=== PATIENT | female | born 1970 | race Caucasian/White ===

== ENCOUNTER 2022-02-14 14:24 | Outpatient (REF) | payer OTHER, SELFPAY ==
[2022-02-14 16:06] LABS: MANUAL DIFF FLAG NO
[2022-02-14 16:14] LABS: Basophils Percent Auto 0.4 % (0-2); Eosinophils Absolute Auto 0.1 X10*3/uL (0.0-0.4); Eosinophils Percent Auto 0.8 % (0-4); Hematocrit 39.6 % (37.0-47.0); Hemoglobin 12.8 g/dl (12.0-16.0); Imm Gran Abs Auto 0.03 X10*3/uL (0.00-0.03); Imm Gran Pct Auto 0.3 % (0.0-0.4); Lymphocytes Absolute Auto 1.8 X10*3/uL (1.2-4.9); Lymphocytes Percent Auto 16.5 % (20-40); Mean Corpuscular HGB Conc 32.3 g/dl (31.0-35.0); Mean Corpuscular Hemoglobin 28.1 pg (27.0-33.0); Mean Corpuscular Volume 86.8 fL (80.0-98.0); Mean Platelet Volume 10.8 fL (9.4-12.3); Monocytes Absolute Auto 0.9 X10*3/uL (0.1-1.2); Monocytes Percent Auto 8.3 % (2-11); Neutrophils Absolute Auto 7.8 x10*3/uL (2.0-8.3); Neutrophils Percent Auto 73.7 % (45-73); Platelet Count 279 X10*3/uL (160-400); Red Blood Count 4.56 X10*6/uL (4.20-5.50); Red Cell Distribution Width 14.2 % (11.0-16.0); White Blood Count 10.6 X10*3/uL (4.8-10.8)
[2022-02-14 16:33] LABS: Lactate Dehydrogenase 165 U/L (122-220)
[2022-02-14 17:14] LABS: Erythrocyte Sedimentation Rate 12 MM/HR (0-20)
[2022-02-16 12:46] LABS: Myeloperoxidase Antibody <1.0 AI; Proteinase 3 PR3 Antibodies <1.0 AI
[2022-02-16 21:25] LABS: Anti Nuclear Antibody Screen POSITIVE (NEGATIVE); Anti Nuclear Antibody Titer 1:40 titer
[2022-02-17 11:26] LABS: Cyclic Citrullinated Peptide <16 UNITS
[2022-02-21 06:07] LABS: Angiotensin Converting Enzyme 21.3 U/L (9-67)
[2022-02-23 09:12] LABS: Asperg fumigatus Precip Abs NEGATIVE (NEGATIVE); Micropoly faeni Abs NEGATIVE (NEGATIVE); Pigeon serum Abs NEGATIVE (NEGATIVE); Saccharo pora viridis Abs NEGATIVE (NEGATIVE); Thermo candidus Abs NEGATIVE (NEGATIVE); Thermoa vulgaris #1 NEGATIVE (NEGATIVE)
== END 2022-02-14 14:25 | disposition home or self-care (01) ==
LOC: HO.LAB 14:24
PROVIDERS: PCP Physician Assistant Medical; Visit Provider Hospitalist
DX: R91.8 Other nonspecific abnormal finding of lung field (principal); R59.1 Generalized enlarged lymph nodes
CPT/HCPCS: 36415; 82164; 83615; 85025; 85652; 86021; 86038; 86039; 86200; 86331; 86606; 86609

== ENCOUNTER 2022-02-15 10:01 | Outpatient (REF) | payer OTHER, SELFPAY ==
--- NOTE | 2022-02-15 | PFT_ITS ---
FLOWS: FEV1 116% of predicted at 3.08 L. FVC 121% of predicted at 4.01 L. FEV1 to FVC ratio of 0.77. No bronchodilator response. LUNG VOLUMES: Total lung capacity 110% of predicted at 5.25 L. Residual volume 112% of predicted at 1.87 L. Diffusion capacity is normal. IMPRESSION: No obstructive or restrictive ventilatory defect. No bronchodilator response. Normal pulmonary function test. MD BENJI Cummins/LUBNA / [id number]
== END 2022-02-15 10:02 | disposition home or self-care (01) ==
LOC: HO.RESP 10:01
PROVIDERS: PCP Physician Assistant Medical; Visit Provider Hospitalist
DX: R05.9 Cough, unspecified (principal); R06.00 Dyspnea, unspecified
CPT/HCPCS: 94060; 94727; 94729

== ENCOUNTER 2022-02-21 12:20 | Day surgery (SDC) | payer OTHER, SELFPAY ==
--- NOTE | 2022-02-20 09:50 | HO.ANESPROP2 ---
Documented by User: Trisha Jung NP 02/20/22 13:52 HPI - Anesthesia Eval Consult details Narrative: 51yo F for Endoscopic Bronchial Ultrasound OR schedule states Can only use propofol ?? PMFSH Active Problems Active Problems: All Active Problems (Updated 02/14/22 @ 15:42 by Efrain Thomas MD) Pulmonary nodules (Acute) Lymphadenopathy (Acute) Past Medical History Medical History Allergic rhinitis Anxiety Family history of malignant hyperthermia Graves disease Hyperthyroidism Interstitial cystitis Lymphadenopathy Pulmonary nodules Vertigo Family History Family history of problems with anesthesia: Yes (son has MH) Surgical History Surgical History H/O ovarian cystectomy Hx of appendectomy Social History Social History Patient Tobacco Use Status: Never used Tobacco Are you DNR?: No Advance Directives: No Advance Directives Information Provided: Yes Meds Allergies Allergy/AdvReac Type Severity Reaction Status Date / Time Sulfa (Sulfonamide Allergy Severe Hives Verified 02/14/22 14:56 Antibiotics) Home Medications Medication Instructions Recorded Confirmed Last Taken Type clonazepam 0.5 mg tablet 0.5 mg PO DAILY PRN 02/14/22 Unknown History methimazole 5 mg tablet 5 mg PO DAILY 02/14/22 Unknown History Exam Exam Date and Time: February 20, 2022 0950 Pertinent Lab Results Pertinent Lab Results: Laboratory Tests 02/14/22 16:00 WBC 10.6 Hgb 12.8 Hct 39.6 Plt Count 279 Narrative Narrative: PFT 02/2022 LUNG VOLUMES:? Total lung capacity 110% of predicted at 5.25 L. ? Residual volume 112% of predicted at 1.87 L. ? Diffusion capacity is normal. ?? IMPRESSION:? No obstructive or restrictive ventilatory defect.? No bronchodilator response. Normal pulmonary function test. Assessment and Plan Assessment Anesthesia Assessment: Chart Reviewed Final Anesthetic Review Family History of Problems with Anesthesia: Yes (son has MH) Documented by User: Froylan Mcpherson MD 02/21/22 15:25 HPI - Anesthesia Eval Consult details Narrative: 51yo F for Endoscopic Bronchial Ultrasound Son has a history of MH with GA. Patient has previously had ovarian cyst removal under unknown anesthesia; has not had formal MH testing. PMFSH Past Medical History Medical History Allergic rhinitis Anxiety Family history of malignant hyperthermia Graves disease Hyperthyroidism Interstitial cystitis Lymphadenopathy Pulmonary nodules Vertigo Surgical History Surgical History H/O ovarian cystectomy Hx of appendectomy History of Problems with Anesthesia: No Social History Social History Patient Tobacco Use Status: Never used Tobacco Are you DNR?: No Advance Directives: No Advance Directives Information Provided: Yes Meds Allergies Allergy/AdvReac Type Severity Reaction Status Date / Time Sulfa (Sulfonamide Allergy Severe Hives Verified 02/14/22 14:56 Antibiotics) Home Medications Medication Instructions Recorded Confirmed Last Taken Type clonazepam 0.5 mg tablet 0.5 mg PO DAILY PRN 02/14/22 Unknown History methimazole 5 mg tablet 5 mg PO DAILY 02/14/22 Unknown History Exam Airway Mallampati Class: II TM Dist: >3cm Neck ROM: Full Loose/Missing/Broken Teeth: No Assessment and Plan Assessment Anesthesia Assessment: Anesthesia Plan Discussed Final Anesthetic Review History of Problems with Anesthesia: No NPO: Yes ASA Class: II Final Preanesthetic Review: No Changes in Pt Med Stat, Meds/Allgs Chart Reviewed, Consent Obtained/Reviewed and Anes Risks/Benef Reviewed Patient Risk: Low Procedure Risk: Low Anesthetic Plan Anesthetic Plan: GA (TIVA, clean technique) Disposition: Standard PACU
[2022-02-21] VITALS (10 sets, daily range): BP systolic 104–126; BP diastolic 50–70; PULSE 72–89; RESP 16–18; TEMP 36.1–36.4; O2SAT 96–100; BMI 32.9
--- NOTE | 2022-02-21 12:42 | MHC.SHP ---
Pre-Procedural Eval Section A Date of Service: 02/21/22 Changes since office visit: Yes Cold of Flu in the past 2 weeks; No New Medical Problems, No Changes in Medication and No Patient answered all questions The History & Physical has been completed within 30 days and I have reviewed it.: Yes Section B Chief Complaint: Enlarged lymph nodes, unspecified Allergies: Allergies Allergy/AdvReac Type Severity Reaction Status Date / Time Sulfa (Sulfonamide Allergy Severe Hives Verified 02/14/22 14:56 Antibiotics) Plan I have reviewed the history and physical and performed a pertinent physical examination on my patient. No changes have occurred unless specified.
[2022-02-21 12:58] LABS: UPreg QC Valid YES; Urine Pregnancy NEGATIVE (NEGATIVE)
[2022-02-21] MEDS: Throat Lozenge, Medicated LOZENGE 1 LOZENGE MUCOUS MEM (15:32)
[2022-02-21] MEDS: Acetaminophen 325 MG TABLET 650 MG PO (15:57)
[2022-02-21] MEDS: ondansetron HCL 4 MG/2 ML VIAL IVPUSH (15:59)
--- NOTE | 2022-02-22 08:21 | P.BOP_ITS ---
Brief Operative Note Date of Service: 02/22/22 Pre-op diagnosis: Lymphadenopathy Post-op diagnosis: same Procedure: Endobronchial ultrasound bronchoscopy with transbronchial needle aspirations and bronchoscopy with washings Implants: Surgeon: Efrain Thomas MD Anesthesia: GLMA Was an Gluer And Wedger used for this Procedure?: No Estimated blood loss (mL): 0 Pathology: none sent Condition: stable Disposition: same day
--- NOTE | 2022-02-22 09:57 | OP_ITS ---
SURGEON: Efrain Thomas MD PREOPERATIVE DIAGNOSIS: Lymphadenopathy. POSTOPERATIVE DIAGNOSIS: Lymphadenopathy and bronchitis. PROCEDURE PERFORMED: Bronchoscopy. ESTIMATED BLOOD LOSS: COMPLICATIONS: ANESTHESIA: LMA. The patient does have a history of malignant hyperthermia in the family, so therefore, all precautions were taken. ASSISTANTS: SPECIMENS: ASA CLASSIFICATION: 2. DESCRIPTION OF PROCEDURE: After the patient is adequately sedated with LMA, the flexible digital bronchoscope with endobronchial ultrasound bronchoscopy was introduced into the LMA. The EBUS was then navigated to the level of the larynx. The vocal cords did move symmetrically to the midline without any lesions or masses. After instilling about 6 mL of 2% lidocaine suspension, the bronchoscope was then navigated past the vocal cords to the level of the trachea. The tracheal mucosa appeared normal, patent without any lesions. Using the ultrasound guidance, the different lymph node stations were evaluated. The patient did have a small, about 0.5 cm of station 4R, appeared to be normal in appearance. Station 4L was also visualized and found to be also approximately about 0.5 cm in size, appeared to be normal in appearance. The bronchoscope was navigated to station 7. However, the patient did have more lymphadenopathy, both in the upper part of station 7 and also in the lower part with multiple lymph nodes measuring greater than 1 cm, so one bulky in that area with multiple different lymph nodes but primarily in the lower part of station 7. Did not appreciate much in station 11R, although the patient did have an elongated lymph node in station 11 L, appeared to be large, little more than 1 cm with long axis. The EBUS was then navigated again to station 7 and using ultrasound guided real-time, transbronchial needle aspirations were collected. Rapid on-site cytology was present, documented presence of lymphocytes. No malignancy noted. Four passes were done and some of the specimen was placed for flow cytometry. Next, the bronchoscope was navigated to station 11L where another 4 transbronchial needle aspirations were done, Real-time ultrasound. Again, lymphocytes were documented, and the rest of specimens was placed inside a ridge and also in flow cytometry. No evidence of any significant bleeding during the procedure. The EBUS was then removed and replaced with the regular bronchoscopy. The regular bronchoscopy was introduced into the LMA to the level of the larynx and then passed the vocal cords to the level of the trachea. The tracheobronchial tree examined up to the subsegmental level. The patient did have some boggy airways with some mild erythema suggesting some bronchitis. The patient did have some mucus which is mucoid in color. Bilateral lung washings were collected and sent for cytology and Gram stain and culture. The bronchoscope was then removed. The total endoscopic time approximately about 40 minutes. Patient tolerated the procedure well. Vital signs were stable throughout the procedure. No complications noted. INTERPRETATION: 1. EBUS-TBNA of station 7 and 11L with rapid on-site cytology. 2. Bronchial washings bilaterally. MD GAURAV Banks/LUBNA / [id number]
== END 2022-02-21 17:43 | disposition home or self-care (01) ==
PROVIDERS: Nurse Practitioner; PCP Physician Assistant Medical; Visit Provider Hospitalist
PROC: (CPT 31652; principal; 2022-02-21 14:00)
DX: R59.9 Enlarged lymph nodes, unspecified (principal); J40 Bronchitis, not specified as acute or chronic; Z84.89 Family history of other specified conditions
CPT/HCPCS: 31652; 36415; 81025; 87071; 87205; 88112; 88172; 88173; 88177; 88184; 88185; 88305; J0171; J1100; J2250; J2370; J2405; J3010

== ENCOUNTER → 2022-03-07 09:07 | Outpatient (BNVA) | payer OTHER, SELFPAY | PROVIDERS: PCP Physician Assistant Medical; Visit Provider Hospitalist | DX: R91.8 Other nonspecific abnormal finding of lung field (principal) ==

== ENCOUNTER 2022-07-06 08:27 | Outpatient (REF) | payer OTHER, SELFPAY ==
--- NOTE | ~2022-07-06 | CT_ITS ---
EXAMINATION: CT CHEST WITHOUT CONTRAST CLINICAL INFORMATION: Follow up lymphadenopathy COMPARISON: Previous chest CT January 2022 TECHNIQUE: Multidetector volumetric CT imaging of the chest was done. Axial MIP volume rendering provided. Sagittal and coronal reformatted images were obtained. This CT examination was performed using dose optimization techniques as appropriate, variously including the following: *Automated exposure control *Adjustment of mA and/or kV according to patient size (this includes techniques or standardized protocols for targeted exams where dose is matched to indication/reason for exam; i.e. extremities or head) *Use of iterative reconstruction technique DLP: 153 mGy-cm FINDINGS: LUNGS: The lungs are clear with no evidence of inflammation or nodules. Peripheral or subpleural left lower lobe nodules along the fissure are no longer seen. MEDIASTINUM: There is interval decrease in mediastinal and bilateral hilar lymphadenopathy from January [address] No enlarged lymph nodes are seen. The mediastinum is normal. CORONARY ARTERY CALCIFICATION: None visualized on this study. PLEURA: There is no pleural effusion. No pleural mass or thickening. AXILLA: No chest wall mass or enlarged axillary lymph nodes. There is asymmetric tissue seen in the right medial inferior breast for example axial image 33 and 35 series 3. UPPER ABDOMEN: Unremarkable. OSSEOUS STRUCTURES: Unremarkable. CT/CT chest wo IV con IMPRESSION: Resolved mediastinal and bilateral hilar lymphadenopathy. Resolved left lower lobe peripheral or subpleural nodules probably representing subpleural lymph nodes. Asymmetric tissue in the right medial inferior breast. Correlation with physical exam and mammogram recommended. Fleischner guidelines were followed.
== END 2022-07-06 08:28 | disposition home or self-care (01) ==
LOC: HO.CT 08:27
PROVIDERS: PCP Physician Assistant Medical; Visit Provider Hospitalist
DX: R91.8 Other nonspecific abnormal finding of lung field (principal); R59.1 Generalized enlarged lymph nodes
CPT/HCPCS: 71250

== ENCOUNTER → 2022-10-04 09:16 | Outpatient (BNVA) | payer OTHER, SELFPAY | PROVIDERS: PCP Physician Assistant Medical; Visit Provider Hospitalist | DX: R91.8 Other nonspecific abnormal finding of lung field (principal) ==

== ENCOUNTER 2022-11-20 08:26 | Outpatient (REF) | payer OTHER, SELFPAY ==
--- NOTE | ~2022-11-20 | FL_ITS ---
PROCEDURE: FL BARIUM SWALLOW CLINICAL INFORMATION: Gastroesophageal reflux disease without esophagitis. COMPARISON: None TECHNIQUE: Barium swallow examination is performed using fluoroscopic evaluation in addition to multiple fluoroscopic spot views. The patient is imaged both upright and prone and using both thick and thin sulfate along with effervescent granules. Fluoroscopy time: 1.8 minutes DAP: 15.421 Gy-cm2 Images: 53 FINDINGS: Following oral administration of thick barium and barium-coated turkey as solid food in upright view and different positions there is normal propagation of bolus from the oral cavity through the pharynx, esophagus into stomach without any evidence of obstruction, narrowing or stricture. On placing patient prone lying and oral administration of thin barium there is good distention of entire esophagus without intraluminal filling defect. There is no intrinsic narrowing or extrinsic compression. There is a small hiatal hernia with mild gastroesophageal reflux. FL/FL barium swallow IMPRESSION: Small hiatal hernia with mild gastroesophageal reflux. Otherwise the barium swallow exam is unremarkable.
== END 2022-11-20 08:27 | disposition home or self-care (01) ==
LOC: HO.XRAY 08:26
PROVIDERS: PCP Physician Assistant Medical; Visit Provider Hospitalist
DX: K21.9 Gastro-esophageal reflux disease without esophagitis (principal)
CPT/HCPCS: 74220

== ENCOUNTER 2023-07-06 13:52 | Outpatient (AMB) | payer OTHER, SELFPAY ==
[2023-07-06 13:51] VITALS: BP 124/78; PULSE 80; O2SAT 98
--- NOTE | 2023-07-06 13:51 | A.OFFVIS_ITS ---
Intake Vital Signs 07/06/23 13:51 Height 5 ft 3 in BP 124/78 Blood Pressure Location Rt brachial Position Sitting Pulse 80 Pulse Source Pulse Oximeter Pulse Oximetry (%) 98 Oxygen Delivery Method Room Air Intake Visit Reasons: post covid cough Crucible Furnace Tender Required: No Pathology Laboratory Aides Teacher: Pathology Laboratory Aides Teacher offered & declined Accompanied by: Self / Same As Patient Allergies Sulfa (Sulfonamide Antibiotics) Allergy (Severe, Verified 07/06/23 14:00) Hives Medication List - Last Reconciled 07/06/23 by Korin Argueta LPN clonazepam 0.5 mg PO DAILY PRN methimazole 2.5 mg PO .QOD HPI post covid cough HPI Details Elena is a pleasant 52 year old female, never smoker, who is followed for pulmonary nodules, GERD, lymphadenopathy with underlying Graves disease. Today she presents for an acute visit. She reports having COVID three weeks ago and all symptoms resolved other than a persitent dry cough which has resulted in hoarseness. She denies any wheeze, chest tightness of dyspnea. She reports last year after COVID, her cough persisted until a course of prednisone, which resulted in complete resolution of symptoms. [facility] Medical History (Updated 07/09/23 @ 20:11 by Carmenza Whitehead NP) GERD (gastroesophageal reflux disease) Family history of malignant hyperthermia Vertigo Interstitial cystitis Hyperthyroidism Graves disease Anxiety Allergic rhinitis Pulmonary nodules Lymphadenopathy Surgical History H/O ovarian cystectomy Hx of appendectomy Social History (Updated 07/06/23 @ 14:02 by Korin Argueta LPN) Patient Tobacco Use Status: Never used Tobacco Smoked in Last 30 Days: No Review of Systems Const Denies chills, Denies excessive sweating, Denies fever(s), Denies headache(s) and Denies night sweats Eyes Denies dry eyes, Denies irritation and Denies itchy eyes ENT Reports Normal hearing present, Denies headache(s), Denies nasal congestion, Denies nasal discharge, Denies post nasal drip and Denies sore throat Card Denies chest pain, Denies chest pain at rest, Denies chest pain with activity, Denies claudication, Denies leg edema, Denies dyspnea, Denies dyspnea on exertion, Denies orthopnea and Denies paroxysmal nocturnal dyspnea Resp Denies chest congestion, Denies excessive phlegm production, Denies pain on inspiration, Denies pain with cough, Denies dyspnea, Denies dyspnea on exertion, Denies stridor and Denies wheezing Musc Denies myalgias Neuro Reports Normal hearing present and Denies headache(s) Endo Denies excessive sweating Rickey/Lymph Denies lymphadenopathy Aller/Immun Denies itchy eyes, Denies seasonal rhinorrhea and Denies wheezing Physical Exam Vital Signs: Last Vital Signs Pulse 80 07/06/23 13:51 BP 124/78 07/06/23 13:51 Pulse Ox 98 07/06/23 13:51 Oxygen Delivery Method Room Air 07/06/23 13:51 Const General: cooperative, healthy appearing, comfortable, no acute distress, well developed and alert Orientation/consciousness: patient oriented x3 Limitations: no limitations HEENT Head: Yes normal to inspection, Yes normocephalic and Yes atraumatic Ears: hearing grossly normal bilaterally and external ears normal Eyes General: appearance normal, both eyes and all related structures Eyelids: Yes eyelids normal Sclerae: sclerae normal EOM: EOMs intact bilaterally Neck Neck: Yes normal visual inspection and Yes no lymphadenopathy Lymphatic: no lymphadenopathy noted Chest Chest palpation & inspection: normal inspection of the chest Resp Other: actively coughing throughout entire visit, dry Effort & Inspection: normal respiratory effort, able to speak in complete sentences, no audible wheezes, no stridor, not tachypneic, no tripod positioning and no use of accessory muscles Auscultation: clear to auscultation bilaterally Cardio Jugular venous distension: no JVD Rate: regular rate Rhythm: regular rhythm Skin Other: warm, dry General skin exam: no rashes or lesions noted Neuro General: patient oriented x3 Cranial nerves: Yes Normal hearing present Cognition (Neuro): normal cognition Gait exam (Neuro): Normal gait present Extrem General: Yes normal to inspection, Yes capillary refill normal, Yes no clubbing, cyanosis or edema and Yes no pedal edema Psych Appearance: grossly normal and well kempt Speech and movement: Normal speech and movement present and Clear speech present Affect: normal affect Attitude: cooperative Thought process: Normal thought process present Thought content: Normal thought content present Insight: Good insight present (Psych) Judgement: Good judgement present (Psych) Assessment & Plan Assessment & Plan (1) Cough: Code(s): R05.9 - Cough, unspecified Plan Elena with persistent prolonged cough after COVID. Will send in prednisone. Patient aware if symptoms do not improve to contact the office and consider imaging. All questions were answered and patient is in agreement of plan. Encouraged patient to make a routine follow up with Dr. Thomas as she has not been seen since September. Medications: New prednisone 40 mg x 5 days, 20 mg x 5 days 40 mg (2 x 20 mg) PO DAILY 15 tabs 0RF Coding Level of Care Code Est Pt Level 3 (02796) Diagnoses Cough R05.9
== END 2023-07-06 14:25 | disposition home or self-care (01) ==
LOC: HO.HPSW 13:52
PROVIDERS: PCP Physician Assistant Medical; Visit Provider Nurse Practitioner Family
DX: R05.9 Cough, unspecified (principal)
CPT/HCPCS: 99213